=== PATIENT | male | born 1960 | race Caucasian/White ===

== ENCOUNTER → 2016-09-01 | Outpatient (CLI) | payer OTHER ==
--- NOTE | 2016-09-01 12:21 | XR ---
EXAMINATION TYPE: XR elbow complete LT DATE OF EXAM: 09/01/2016 12:05 PM COMPARISON: NONE HISTORY: 56-year-old male initial evaluation unspecified sprain of left elbow, medial elbow pain afte r shoveling injury TECHNIQUE: 3 views FINDINGS: There is mild marginal spurring at the ulnotrochlear joint suggesting some underlying degenerative ch johan. No acute fracture, subluxation, or dislocation. No significant elbow joint effusion though ther e is excessive obliquity on the lateral view limiting assessment. IMPRESSION: There is some degenerative spurring along the ulnotrochlear joint. No acute osseous abnormality seen.
== END ==
LOC: RADXRMAIN 11:43
PROVIDERS: ATTEND Emergency Medicine
DX: S53.402A Unspecified sprain of left elbow, initial encounter (principal); M77.8 Other enthesopathies, not elsewhere classified

== ENCOUNTER → 2019-03-15 | Outpatient (CLI) | payer BC ==
--- NOTE | 2019-03-15 19:37 | MR ---
"Abdomen MRI HISTORY: Adrenal mass Multiplanar multisequence and postcontrast images obtained through the abdomen following 8.5 cc Gadav ist IV. Correlation to prior CT scan dated 03/02/2019 The bilateral adrenal masses show marked signal drop on out of phase imaging compatible with adrenal adenomas. Signal drop also noted within the liver compatible with hepatic steatosis, the liver is enl arged and there is a small T2 intense, T1 hypointense focus within the right lobe corresponding to li mahad a cyst. The pancreas is unremarkable. Cortical cysts are T2 intense within the bilateral kidneys . There is no abnormal enhancement. Gallbladder is normal. There is no ascites. No retroperitoneal ad enopathy. The abdominal aorta is aneurysmal in the infrarenal location measuring approximately 4.7 cm, there is plaque along the wall and the common iliac arteries are not included in the exam. Lesion is unremark able. Lung bases show no fluid. No pleural or pericardial effusion. IMPRESSION: Bilateral adrenal adenomas. Hepatomegaly and hepatic steatosis. Infrarenal abdominal aort ic aneurysm, follow-up is recommended. A Yellow level critical message alert has been initiated for Natasha Farfan MD via the [employer] [facility] | Critical Results System on 03/15/2019 7:34 PM. This message alert has been sent to Natasha schneider MD via the preferences provided by the clinician for the receipt of Radiology Critical Findings. Message ID [id number]."
== END | disposition home or self-care (01) ==
LOC: RADMRIMAIN 06:59
PROVIDERS: ATTEND Internal Medicine
DX: D35.02 Benign neoplasm of left adrenal gland (principal); D35.01 Benign neoplasm of right adrenal gland; K76.0 Fatty (change of) liver, not elsewhere classified
CPT/HCPCS: 74183; A9585

== ENCOUNTER 2019-05-11 09:14 | Observation (INO) | payer BC, OTHER ==
--- NOTE | 2019-05-11 11:06 | ED ---
Neuro HPI - General Chief Complaint: Neuro Symptoms/Deficit Stated Complaint: Neuro symptoms Time Seen by Provider: 05/11/19 09:20 Source: patient, EMS Mode of arrival: EMS Limitations: no limitations - History of Present Illness Is the patient presenting with stroke symptoms?: Yes Last Known Well Date: 05/10/19 Last Known Well Time: 22:00 Initial Comments: The patient is a 58-year-old male who is a transfer from [facility] for stroke-like symptoms. The patient had onset of his symptoms were on 12:30 AM this morning. He states that he got up to go to the bathroom and he noted that he had weakness in his right upper and right lower extremity. He says that normally he has chronic weakness in his left lower extremity because of a meniscus injury. States that he was offered for him to have weakness on his right side. He felt as if he was not coordinated. He had difficulties with ambulation. He thought it was because he had a few drinks last night and the refore went to bed to sleep it off. When he woke up this morning he still had persistence of his symptoms. He denies any headaches or visual changes. No slurred speech or confusion from the patient. He then presented to [facility]. They did perform a CT of the patient's head which demonstrated an old infarct. They did state that the patient had some ataxia. They transferred him to our facility for further neurologic evaluation. He denies any blunt head trauma. Is not on any blood thinners. No history of CVA or TIA. Denies any difficulty swallowing. No chest pain or shortness of breath. There are no other alleviating, precipitating or modifying factors - Related Data Home Medications: Home Medications Medication Instructions Recorded Confirmed Diclofenac Sodium [Voltaren] 75 mg PO BID PRN 05/11/19 05/11/19 Previous Rx's Medication Instructions Recorded Aspirin 81 mg PO DAILY #30 chewable 05/12/19 Atorvastatin [Lipitor] 40 mg PO HS #30 tab 05/12/19 Allergies/Adverse Reactions: Allergies Allergy/AdvReac Type Severity Reaction Status Date / Time Sulfa (Sulfonamide AdvReac Unknown Verified 05/11/19 11:10 Antibiotics) Review of Systems ROS Statement: Those systems with pertinent positive or pertinent negative responses have been documented in the HPI. ROS Other: All systems not noted in ROS Statement are negative. General Exam Limitations: no limitations General appearance: alert, in no apparent distress Head exam: Present: atraumatic, normocephalic, normal inspection Eye exam: Present: normal appearance, PERRL, EOMI. Absent: scleral icterus, conjunctival injection, periorbital swelling ENT exam: Present: normal exam, mucous membranes moist Neck exam: Present: normal inspection. Absent: tenderness, meningismus, lymphadenopathy Respiratory exam: Present: normal lung sounds bilaterally. Absent: respiratory distress, wheezes, rales, rhonchi, stridor Cardiovascular Exam: Present: regular rate, normal rhythm, normal heart sounds. Absent: systolic murmur, diastolic murmur, rubs, gallop, clicks GI/Abdominal exam: Present: soft, normal bowel sounds. Absent: distended, tenderness, guarding, rebound, rigid Extremities exam: Present: normal inspection, full ROM, normal capillary refill. Absent: tenderness, pedal edema, joint swelling, calf tenderness Back exam: Present: normal inspection Neurological exam: Present: alert, oriented X3, CN II-XII intact, other (finger to nose is mildy weaker on the right ) Psychiatric exam: Present: normal affect, normal mood Skin exam: Present: warm, dry, intact, normal color. Absent: rash Stroke MDM - Lab Data Result diagrams: 05/12/19 05:31 05/12/19 05:31 - Medical Decision Making Upon arrival the patient was placed into room 4. I did review the patient's transfer packet.Review of the patient's lab work from [facility] demonstrates a sodium of 143, potassium 4.2, chloride 108, CO2 25, creatinine 0.9. Coags are within normal limits. Urinalysis is clear. White blood cell count 8.9, hemoglobin 15.9, platelets 251. CT of the head without contrast demonstrates no acute intracanal process. Moderate burden nonspecific white matter change appears similar to January 2019 with old punctate lacunar injury of the posterior limb of the left internal capsule. I called and discussed the case with Dr. Schofield who is requesting CT angios as well as an MRI of the patient's brain. The patient is sent over for CT angiography which demonstrates no flow-limiting stenosis of the bilateral carotid bifurcation. Normal [place]. Prominence of the thyroid. I discussed the results with the patient. I placed admission orders. He will be admitted to [facility] hospitalist. I did order the MRI. The patient is currently awaiting a bed on the floor Past Medical History History of Any Multi-Drug Resistant Organisms: None Reported Past Surgical History: Orthopedic Surgery, Tonsillectomy Additional Past Surgical History / Comment(s): right knee surgery Past Psychological History: No Psychological Hx Reported Smoking Status: Current every day smoker Past Alcohol Use History: Occasional - Past Family History Father Additional Family Medical History / Comment(s): Post polio Mother Family Medical History: Vascular Disorder Additional Family Medical History / Comment(s): Mother of a brain aneurysm. Course Vital Signs 05/11/19 05/11/19 05/11/19 09:19 11:13 14:53 Temperature 97.9 F 98 F Pulse Rate 64 66 66 Pulse Rate [ Pulse Oximetery ] Respiratory 16 16 18 Rate Blood Pressure 156/88 156/88 144/95 Blood Pressure [Left Arm] O2 Sat by Pulse 97 100 Oximetry 05/11/19 16:00 Temperature 97.7 F Pulse Rate Pulse Rate [ 65 Pulse Oximetery ] Respiratory 16 Rate Blood Pressure Blood Pressure 128/83 [Left Arm] O2 Sat by Pulse 95 Oximetry Disposition Clinical Impression: Cerebrovascular accident (CVA), Acute ataxia, Right arm weakness Disposition: ADMITTED IP TO THIS [facility] Condition: Stable Is patient prescribed a controlled substance at d/c from ED?: No Decision to Admit Reason: Admit from [facility] Decision Date: 05/11/19 Decision Time: 12:28
--- NOTE | 2019-05-11 12:05 | CT ---
EXAMINATION TYPE: CT angio head neck DATE OF EXAM: 05/11/2019 HISTORY: right side weakness COMPARISON: CT DLP: 467.8 mGycm. Automated Exposure Control for Dose Reduction was Utilized. TECHNIQUE: CTA scan of the neck is performed with IV Contrast, patient injected with 65 mL of Isovue 370, axial images are obtained, coronal and sagittal reformatted images are reviewed. Three-D recons tructed images are created on an independent workstation and reviewed. Source images are reviewed. FINDINGS: Carotid/Vascular Structures: There is a three-vessel arch. Right carotid artery is tortuous. The inte rnal carotid artery on the right is tortuous. There is milder tortuosity on the left. Cervical of Mahmood: Vertebral basilar system appears normal. Posterior cerebral vasculature is unrema rkable. Internal carotid arteries bifurcate normally into A1 and M1 segments. A2 segments are normal. The anterior communicating artery is patent. Left Posterior communicating artery is patent. Right po sterior communicating artery is patent. Other: There is prominence of the thyroid. This could be followed with ultrasound. IMPRESSION: 1. No flow-limiting stenosis bilateral carotid bifurcations. 2. Normal [place] 3. Prominence of the thyroid. Follow-up with ultrasound.
[2019-05-11] MEDS ORDERED: NALOXONE 0.4 MG/ML 1 ML VIAL IV PRN (12:28)
[2019-05-11] MEDS ORDERED: ATORVASTATIN 40 MG TAB PO STA (12:37)
--- NOTE | 2019-05-11 14:21 | MR ---
EXAMINATION TYPE: MR brain wo/w con DATE OF EXAM: 05/11/2019 COMPARISON: CT brain 05/11/2019 HISTORY: CVA CONTRAST: Performed utilizing 8.5 mL intravenous Gadavist gadolinium contrast. TECHNIQUE: Multiplanar, multiecho imaging on a 3.0 Rosario magnet is performed through the brain. Stud y is performed within 24 hours of arrival to the hospital. The craniovertebral junction is normal. The pituitary is normal. Diffusion-weighted imaging is performed. There is a punctate hyper intensity on the diffusion weight ed imaging in the posterior right lateral aspect of the corpus callosum. Series 305 image 152. Additi onally, small focus of increased signal on diffusion-weighted imaging is in the subcortical white mat ter of the right parietal lobe at the level of the rizzo radiata. Acute ischemic changes at these le vels are suspected. There is extensive periventricular white matter hyperintensities. Some additional hyperintensities wi thin the right brain stem. Findings are nonspecific but could be related to microvascular ischemic ch johan. Other etiologies including multiple sclerosis and vasculitis could be considered. Ventricles and sulci are appropriate for the patient age. No abnormal enhancement is evident. IMPRESSIONS: 1. Hyperintensity within the posterior right corpus callosum and within the right subcortical parieta l lobe on diffusion-weighted imaging suggestive for acute ischemic areas. 2. Extensive periventricular white matter hyperintensities and right brain stem hyperintensity on inv ersion recovery weighted sequences may be related to chronic white matter ischemic change.
[2019-05-11] MEDS ORDERED: ACETAMINOPHEN TAB 500 MG TAB PO PRN (16:34)
[2019-05-11] MEDS ORDERED: ALPRAZolam 0.25 MG TAB PO PRN (16:34)
--- NOTE | 2019-05-11 19:08 | HP ---
HISTORY AND PHYSICAL DATE OF SERVICE: 05/11/2019 CHIEF COMPLAINT: Weakness of the right side of the body. HISTORY OF PRESENT ILLNESS: This 58-year-old gentleman with a past medical history of DJD, history of pneumonia, history of vertigo, history of chronic left knee pain, being followed by Dr. Farfan in the outpatient setting, apparently had an episode of speech problems about 2 months ago which lasted for a few hours. Patient did not seek any medical attention, but subsequently since last night the patient has noted weakness of the right side of the body; right hand and right foot were not under his control, according to him, and the patient went to [facility]. Evaluation showed possible old lacunar infarct in the left posterior limb of internal capsule. The patient was referred to [facility] because of lack of a neurologist at this time. Neurology consultation was obtained. Currently the patient still has some weakness, more incoordination type of difficulties. The patient also had a CT angio that showed no evidence of any obstruction, but the patient also had an MRI scan that showed hyperintensity within the posterior right corpus callosum and within the right subcortical parietal lobe on diffusion weighted imaging suggestive of acute ischemic areas. Extensive periventricular changes were also noted. Patient was admitted for further evaluation and treatment. There is no history of any fever, rigor or chills. No history of headache, loss of consciousness, seizures. PAST MEDICAL HISTORY: 1. History of DJD. 2. History of pneumonia. 3. History of vertigo. 4. History of speech difficulties, as mentioned earlier. CURRENT MEDICATIONS: Reviewed. They include Voltaren 75 mg b.i.d. p.r.n. ALLERGIES: SULFA. FAMILY HISTORY: History of vascular disorder, history of post-polio. SOCIAL HISTORY: History of alcohol, occasional. History of smoking on a daily basis. REVIEW OF SYSTEMS: ENT: No diminished hearing. No diminished vision. CARDIOVASCULAR SYSTEM: No angina, palpitations. RESPIRATORY SYSTEM: As mentioned earlier. GI: No nausea, vomiting. : No dysuria or retention. NERVOUS SYSTEM: As mentioned earlier. ALLERGY/IMMUNOLOGY: No asthma, hayfever. MUSCULOSKELETAL: As mentioned earlier. HEMATOLOGY/ONCOLOGY: No history of anemia. ENDOCRINE: No history of diabetes, hypothyroidism. CONSTITUTIONAL: As mentioned earlier. DERMATOLOGY: Negative. RHEUMATOLOGY: Negative. PSYCHIATRY: As mentioned earlier. PHYSICAL EXAMINATION: Patient alert and oriented x3. Pulse 66, blood pressure 144/95, respirations 18, temperature 98 degrees, pulse ox 100% on room air. HEENT: Conjunctivae normal. Oral mucosa moist. NECK: No jugular venous distention. No carotid bruit. No lymph node enlargement. CARDIOVASCULAR SYSTEM: S1, S2 muffled. No S3. No S4. RESPIRATORY SYSTEM: Breath sounds diminished at the bases. No rhonchi. No crackles. ABDOMEN: Soft, non-tender. No mass palpable. LEGS: No edema. No swelling. NERVOUS SYSTEM: Higher functions as mentioned earlier. Cranial nerves: Minimal flattening of the face on the left side. Otherwise, minimal weakness of the right upper and lower limbs, grade 3-4. Some incoordination also present on the right side. SKIN: No ulcer, rash, bleeding. JOINTS: No active deforming arthropathy. LYMPHATICS: No lymph node palpable in neck, axillae or groin. LAB INVESTIGATIONS: Pending at this time. ASSESSMENT: 1. Acute right-sided weakness caused by left-sided acute stroke involving the posterior right corpus callosum as well as right subcortical parietal lobe. 2. Extensive white matter periventricular changes on the MRI. 3. Hypertension. 4. History of degenerative joint disease. 5. History of pneumonia. 6. History of vertigo. 7. History of chronic left knee pain. 8. History of bronchitis. 9. History of continued ongoing nicotine dependence. 10.History of occasional alcohol usage. 11.FULL CODE. RECOMMENDATIONS AND DISCUSSION: In this 58-year-old gentleman who presented with multiple complex medical issues, we will monitor the patient closely, continue the current medications. Will admit and monitor closely. Neuro checks. Neurovascular evaluation and a 2D echo with Doppler. I would also recommend a OUMAR if the telemetry and other cardiac workup, if the transthoracic echo is normal. Otherwise, antiplatelet agents, DVT prophylaxis. Guarded prognosis because of multiple complex medical problems. Smoking cessation advised. A copy of this dictation is being forwarded to Dr. Farfan, who is the primary physician. Discussed with the patient, who understands and agrees. Further recommendations to follow. See orders for further details. Will continue with permissive hypertension at this time. Continue to monitor. MMODL / IJN: [id number] /
[2019-05-11 19:50] LABS: Appearance,Urine Clear (Clear); Bilirubin,Urine Negative (Negative); Blood,Urine Negative (Negative); Color,Urine Yellow; Glucose,Urine (UA) Negative (Negative); Ketones,Urine Negative (Negative); Leukocyte Esterase,Urine Negative (Negative); Nitrite,Urine Negative (Negative); Protein,Urine Trace (Negative); Urobilinogen,Urine <2.0 mg/dL (<2.0)
[2019-05-11 19:59] LABS: Amphetamine Screen,Urine Not Detected (NotDetected); Barbiturate Screen,Urine Not Detected (NotDetected); Benzodiazepines Screen,Urine Not Detected (NotDetected); Cocaine Screen,Urine Not Detected (NotDetected); Methadone Screen, Urine Not Detected (NotDetected); Opiate Screen,Urine Not Detected (NotDetected); Oxycodone Screen, Urine Not Detected (NotDetected); Phencyclidine Screen,Urine Not Detected (NotDetected); Tricyclic Antidepressant,Urine Not Detected (NotDetected); Urn Cannabinoid Scrn Not Detected (NotDetected)
[2019-05-11] MEDS: HEPARIN SODIUM,PORCINE 5,000 UNIT/ML 1 ML VIAL SQ SCH (20:28)
[2019-05-12 05:50] LABS: Basophils % (A) 1 %; Eosinophils # (A) 0.3 k/uL (0-0.7); Eosinophils % (A) 4 %; HCT 41.7 % (39.0-53.0); HGB 14.1 gm/dL (13.0-17.5); Lymphocytes # (A) 2.3 k/uL (1.0-4.8); Lymphocytes % (A) 28 %; MCH 32.9 pg (25.0-35.0); MCHC 33.9 g/dL (31.0-37.0); Mean Platelet Volume 7.5; Monocytes # (A) 0.4 k/uL (0-1.0); Monocytes % (A) 5 %; Neutrophils % (A) 61 %; Platelet Count 274 k/uL (150-450); RDW 12.4 % (11.5-15.5); WBC 8.3 k/uL (3.8-10.6)
[2019-05-12 05:59] LABS: African American GFR (CKD) >90 (>60 ml/min/1.73 sqM); Anion Gap 5 mmol/L; Blood Urea Nitrogen 25 mg/dL (9-20); Calcium 9.1 mg/dL (8.4-10.2); Carbon Dioxide 24 mmol/L (22-30); Chloride 112 mmol/L (98-107); Cholesterol 194 mg/dL (<200); Glucose 151 mg/dL (74-99); HDL Cholesterol 31 mg/dL (40-60); LDL Cholesterol,Calculated 138 mg/dL (0-99); Non-African American GFR(CKD) >90 (>60 ml/min/1.73 sqM); Potassium 4.2 mmol/L (3.5-5.1); Sodium 141 mmol/L (137-145); Triglycerides 123 mg/dL (<150)
[2019-05-12] MEDS ORDERED: PANTOPRAZOLE 40 MG TABLET PO SCH (07:30)
[2019-05-12 08:48] VITALS: RESP 16; TEMP 97.7
[2019-05-12] MEDS: HEPARIN SODIUM,PORCINE 5,000 UNIT/ML 1 ML VIAL SQ SCH (08:52)
[2019-05-12] MEDS ORDERED: ASPIRIN 325 MG TAB PO SCH (09:00)
[2019-05-12] MEDS ORDERED: NICOTINE 14MG/24HR PATCH TRANSDERM SCH (09:00)
[2019-05-12] MEDS ORDERED: ATORVASTATIN 40 MG TAB PO SCH (09:00)
[2019-05-12 11:07] VITALS: BP 132/83; PULSE 58
--- NOTE | 2019-05-12 12:00 | ECHOF ---
Referral Reason:Stroke MEASUREMENTS -------- HEIGHT: 185.4 cm WEIGHT: 96.2 kg BP: 115/56 RVIDd: 3.8 cm (< 3.3) IVSd: 1.2 cm (0.6 - 1.1) LVIDd: 5.6 cm (3.9 - 5.3) LVPWd: 1.2 cm (0.6 - 1.1) IVSs: 1.3 cm LVIDs: 4.0 cm LVPWs: 2.0 cm LAESV Index (A-L): 29.19 ml/m Ao Diam: 3.4 cm (2.0 - 3.7) AV Cusp: 2.0 cm (1.5 - 2.6) LA Diam: 3.7 cm (2.7 - 3.8) MV EXCURSION: 15.279 mm (> 18.000) MV EF SLOPE: 61 mm/s (70 - 150) EPSS: 1.1 cm MV E Femi: 0.92 m/s MV DecT: 216 ms MV A Femi: 0.77 m/s MV E/A Ratio: 1.20 RAP: 5.00 mmHg RVSP: 37.28 mmHg FINDINGS -------- Sinus rhythm. This was a technically adequate study. The left ventricular size is normal. There is mild concentric left ventricular hypertrophy. Overa ll left ventricular systolic function is low-normal with, an EF between 50 - 55 %. The diastolic fi lling pattern is normal for the age of the patient 11.02. The right ventricle is mildly enlarged. LA is midly dilated 29-33ml/m2. The right atrium is mildly enlarged. Interatrial and interventricular septum intact. The aortic valve is trileaflet and appears structurally normal. There is no evidence of aortic regu rgitation. There is no evidence of aortic stenosis. Mild mitral regurgitation is present. Mild tricuspid regurgitation present. There is mild pulmonary hypertension. The right ventricular systolic pressure, as measured by Doppler, is 37.28mmHg. There is no pulmonic regurgitation present. The aortic root size is normal. IVC Not well visulized. There is no pericardial effusion. CONCLUSIONS -------- 1. Sinus rhythm. 2. This was a technically adequate study. 3. The left ventricular size is normal. 4. There is mild concentric left ventricular hypertrophy. 5. Overall left ventricular systolic function is low-normal with, an EF between 50 - 55 %. 6. The diastolic filling pattern is normal for the age of the patient 11.02 7. The right ventricle is mildly enlarged. 8. LA is midly dilated 29-33ml/m2. 9. The right atrium is mildly enlarged. 10. Interatrial and interventricular septum intact. 11. The aortic valve is trileaflet and appears structurally normal. 12. There is no evidence of aortic regurgitation. 13. There is no evidence of aortic stenosis. 14. Mild mitral regurgitation is present. 15. Mild tricuspid regurgitation present. 16. There is mild pulmonary hypertension. 17. The right ventricular systolic pressure, as measured by Doppler, is 37.28mmHg. 18. There is no pulmonic regurgitation present. 19. The aortic root size is normal. 20. IVC Not well visulized. 21. There is no pericardial effusion. BREAD BAKER: Jessica Huggins RDCS
--- NOTE | 2019-05-12 13:39 | P.DS ---
Providers Date of admission: 05/11/19 12:29 Attending physician: Qian Gray Consults: 05/11/19 12:29 Consult Physician Urgent Consulting Provider: Kaylyn Schofield Consult Reason/Comments: acute right sided weakness, suspected TIA/CVA Do you want consulting provider notified?: Yes Primary care physician: Naheed Aguilar [facility] Course: 58-year-old male was admitted for TIA involving the right side of the body. His symptoms resolved after a few hours. CAT scan of the head that was done in at [facility] did show a lacunar infarct in the left posterior and urine which explains his symptoms of weakness in the right side of the body but this appears to be an old stroke. Patient appears to have had TIA here. MRI although did show some suspicious infarcts in the right corpus callosum and right subcortical area although these findings doesn't explain his present symptoms. I did discuss with the neurologist and she is not impressed with with the above reading and but concerned about couple areas that are suspicious for multiple sclerosis although probably extremely low because of his age and sex. Patient will be referred to neurologist excessive counseling regarding nicotine use provided patient does have elevated LDL of 138 did counseling was provided and patient will be discharged on statin and a low-dose aspirin echocardiogram was reviewed did not show any significant abnormality. PHYSICAL EXAMINATION: GENERAL: The patient is alert and oriented x3, not in any acute distress. Well developed, well nourished. HEENT: Pupils are round and equally reacting to light. EOMI. No scleral icterus. No conjunctival pallor. Normocephalic, atraumatic. No pharyngeal erythema. No thyromegaly. CARDIOVASCULAR: S1 and S2 present. No murmurs, rubs, or gallops. PULMONARY: Chest is clear to auscultation, no wheezing or crackles. ABDOMEN: Soft, nontender, nondistended, normoactive bowel sounds. No palpable organomegaly. MUSCULOSKELETAL: No joint swelling or deformity. EXTREMITIES: No cyanosis, clubbing, or pedal edema. NEUROLOGICAL: Gross neurological examination did not reveal any focal deficits. SKIN: No rashes. Possible TIA involving left internal capsule ischemic in origin. The rest of the other medical problems and hospitalization course, please refer to dictation from Dr. Gray from yesterday Patient Condition at Discharge: Serious Plan - Discharge Summary Discharge Rx Participant: No New Discharge Prescriptions: New Aspirin 81 mg PO DAILY #30 chewable Atorvastatin [Lipitor] 40 mg PO HS #30 tab Continue Diclofenac Sodium [Voltaren] 75 mg PO BID PRN PRN Reason: Pain Discharge Medication List Diclofenac Sodium [Voltaren] 75 mg PO BID PRN 05/11/19 [History] Aspirin 81 mg PO DAILY #30 chewable 05/12/19 [Rx] Atorvastatin [Lipitor] 40 mg PO HS #30 tab 05/12/19 [Rx] Follow up Appointment(s)/Referral(s): Natasha Farfan MD [Primary Care Provider] - 05/24/19 9:00 am Randall Corrigan MD [STAFF PHYSICIAN] - 1 Week (Neurologist. Office will call with a follow up appointment. ) Patient Instructions/Handouts: Heart Healthy Diet (DC), Ischemic Stroke (DC) Discharge Disposition: HOME SELF-CARE
--- NOTE | 2019-05-12 13:57 | P.CNNES ---
History of Present Illness Consult date: 05/12/19 Reason for Consult: Concern for stroke Chief complaint: RUE and RLE weakness History of Present Illness: HISTORY OF PRESENT ILLNESS: Thank you for allowing me to evaluate Mr. Pk Pink. Mr. Pink is a 58 year-old L-handed man with PMhx of vertigo, speech difficulties since about 2 months ago, who presents with episode of R-sided weakness. Patient states that 12:30 am before presentation, patient noted that he was having some RUE and RLE weakness along with R hand coordination issues. Patient has a history of R knee surgery and L meniscus injury, but patient has had issues with his LLE weakness. At this time, patient with no focal deficits. All symptoms resolved since about 5pm yesterday per patient. Denies any recent sickness, fever, headache, nausea, vomiting, chest pain, SOB, abdominal pain, diarrhea or constipation. In regards to his episode of slurred speech, patient states that he was in a car with his [id number] who was driving, and at one point, patient himself felt that he had slurred speech so asked his [id number], and he agreed. Patient denies ever having vision issues, pain with eye movement, urinary/bowel incontinence/continence issues, weakness other than what happened yesterday. Endorses persistent L foot numbness that's been going on for years. PAST MEDICAL HISTORY: Vertigo, speech difficulties since about 2 months ago PAST SURGICAL HISTORY: Tonsillectomy, R knee surgery HOME MEDICATIONS: Diclofenac ALLERGIES: Sulfa SOCIAL HISTORY: Current everyday smoker FAMILY HISTORY: Father with polio. Mother of a brain aneurysm. REVIEW OF SYSTEMS: The 14 systems are reviewed and no additional points are identified compared to the review of systems documented history and physical PHYSICAL EXAMINATION: VITAL SIGNS: T 97.7 HR 62 RR 16 BP 119/68 O2 sat 94% on RA GEN.: NAD, pleasant and cooperative HEENT: NCAT, sclera without icterus NECK: Supple SKIN AND EXTREMITIES: Warm to touch, no edema NEURO: MENTAL STATUS: Patient alert and oriented to self, place, time. Able to name the current president. Speech fluent, able to name and repeat, following all commands readily. No right and left disorientation, neglect. CRANIAL NERVES II THROUGH XII: II: Pupils are equal and reactive to light symmetrically. No afferent pupillary defect. Visual panda are intact. III, IV, : No ptosis. Extraocular movements full. No nystagmus. V: Facial sensation intact from V1-3. VII. No clear facial asymmetry. VIII: Hearing intact to finger rub bilaterally. IX, X: Symmetric palate elevation. XI: Shoulder shrug intact. XII: Tongue midline without fasciculation or atrophy. MOTOR: Normal bulk/tone. No pronator drift or tremor. Strength is 5/5 throughout all 4 extremities. SENSORY: Intact to light touch in all 4 extremities. Romberg is negative. REFLEXES: 2+ throughout. Toes are downgoing. COORDINATION: Finger to nose intact. No dysmetria. GAIT: Narrow-based and stable. Able to toe/heel/tandem walk. Some difficulty due to pain in L knee DIAGNOSTIC TESTING: LABORATORY: WBC 8.3 Hgb 14.1 Platelet 274 Na 141 K 4.2 Cl 112 CO2 24 BUN 25 Cr 0.72 glucose 151 TG 123 Total cholesterol 194 LDL 138 HDL 31 urinalysis and utox negative IMAGING: CTA Head and Neck w/ contrast 05/11/19: No flow-limiting stenosis of bilateral carotid bifurcations. Normal [place] MRI brain w/ and w/o contrast 05/11/19: small focus of increased signal in R parietal and R lateral aspect of corpus callosum on diffusion that does not correlate with ADC. Extensive periventricular white matter hyperintensities and R brainstem hyperintensity, may be related to chronic white matter ischemic change. Outside CT Head: apparently showed old lacunar infarct in L internal capsule Cardiac monitoring: no obvious atrial arrhythmia since admission TTE 05/12/19: SR. LV, size normal. RV/RA/LA mildly enlarged. EF 50-55%. Interatrial and interventricular septum intact. ASSESSMENT: 58 year-old L-handed man with PMhx of vertigo, speech difficulties since about 2 months ago, who presents with episode of R-sided weakness. At this time, no focal deficit. MRI brain with small focus of increased signal in R parietal and R lateral aspect of corpus callosum on diffusion that does not correlate with ADC, difficult to call it acute stroke. However, on T2 Flair, there are many ovoid hyperintense lesions along with some small perivenular lesions, that are found in MS patients, but patient does not endorse any additional episodes of neurological deficit other than the slurred speech 2 months ago and R-sided weakness and incoordiantion. MRI brain was done with contrast, and nothing enhancing. RECOMMENDATIONS: 1. c/w ASA 81mg qday and atorvastatin 40mg qhs 2. Discussed with patient about stroke prevention guidelines. Medication compliance, hypertension/diabetes control, lifestyle changes including no smoking, drinking in moderation, losing weight, exercising, eating healthier 3. Patient needs to follow up with neurologist as outpatient within 2-3 weeks of discharge. Advised patient to take all his medical records from this hospitalization to review imaging and documentation for possible consideration of MS as a diagnosis. 4. Discussed ED precautions: return to ED if having severe headache, nausea, vomiting, vision deficits, speech difficulty, facial asymmetry, weakness, numbness or tingling. 5. Neurology will sign off at this time. Please feel free to contact Neurology again if with additional questions or concerns. Past Medical History Past Medical History: Osteoarthritis (OA), Pneumonia Additional Past Medical History / Comment(s): Vertigo, chronic L knee pain (torn meniscus), bronchitis. History of Any Multi-Drug Resistant Organisms: None Reported Past Surgical History: Orthopedic Surgery, Tonsillectomy Additional Past Surgical History / Comment(s): right knee surgery Past Anesthesia/Blood Transfusion Reactions: No Reported Reaction Past Psychological History: No Psychological Hx Reported Smoking Status: Current every day smoker Past Alcohol Use History: Occasional - Past Family History Father Additional Family Medical History / Comment(s): Post polio Mother Family Medical History: Vascular Disorder Additional Family Medical History / Comment(s): Mother of a brain aneurysm. Medications and Allergies Home Medications Medication Instructions Recorded Confirmed Type Diclofenac Sodium [Voltaren] 75 mg PO BID PRN 05/11/19 05/11/19 History Aspirin 81 mg PO DAILY #30 chewable 05/12/19 Rx Atorvastatin [Lipitor] 40 mg PO HS #30 tab 05/12/19 Rx Allergies Allergy/AdvReac Type Severity Reaction Status Date / Time Sulfa (Sulfonamide AdvReac Unknown Verified 05/11/19 11:10 Antibiotics) Physical Examination - Vital Signs Vital Signs: Vital Signs Temp Pulse Pulse Resp BP BP Pulse Ox 05/12/19 08:00 62 16 05/12/19 07:30 97.7 F 62 16 119/68 94 L 05/12/19 04:00 97.9 F 61 18 115/56 96 05/12/19 00:00 98.4 F 61 18 120/59 96 05/11/19 20:00 98.3 F 76 16 128/73 94 L 05/11/19 16:00 97.7 F 65 16 128/83 95 05/11/19 14:53 98 F 66 18 144/95 100 05/11/19 11:13 66 16 156/88 Intake and Output 05/11/19 05/12/19 05/12/19 22:59 06:59 14:59 Intake Total 800 540 240 Output Total 150 Balance 650 540 240 Intake: Oral 800 540 240 Output: Urine 150 Other: Voiding Method Toilet Toilet Toilet # Voids 1 2 Weight 96.2 kg Results - Laboratory Findings CBC and BMP: 05/12/19 05:31 05/12/19 05:31 Abnormal Lab Findings: Abnormal Labs 05/11/19 05/12/19 19:30 05:31 Chloride 112 H BUN 25 H Glucose 151 H LDL Cholesterol, Calc 138 H HDL Cholesterol 31 L Ur Specific [place] 1.050 H Urine Protein Trace H
[2019-05-13] MEDS ORDERED: ASPIRIN 81 MG PO SCH (09:00)
== END 2019-05-12 13:05 | disposition home or self-care (01) ==
LOC: EC 09:14 → 3SCARD 12:29
PROVIDERS: ADMIT Hospitalist; ATTEND Hospitalist
DX: G45.9 Transient cerebral ischemic attack, unspecified (principal); I10 Essential (primary) hypertension; Z79.82 Long term (current) use of aspirin; Z79.899 Other long term (current) drug therapy; Z86.73 Personal history of transient ischemic attack (TIA), and cerebral infarction without residual deficits; Z87.01 Personal history of pneumonia (recurrent); Z88.2 Allergy status to sulfonamides; F17.200 Nicotine dependence, unspecified, uncomplicated; Z71.6 Tobacco abuse counseling
CPT/HCPCS: 96372 ×2; 99285; 93306; 97161; 97166; 80061; 80048; 85025; 81003; 80306; 70496; 70498; 70553; G0378 ×2; J1644 ×2; A9585; Q9967

== ENCOUNTER → 2019-08-08 | Outpatient (CLI) | payer OTHER | END | disposition home or self-care (01) | LOC: LABWHC1 06:49 | PROVIDERS: ATTEND Internal Medicine Endocrinology, Diabetes & Metabolism | DX: D35.00 Benign neoplasm of unspecified adrenal gland (principal) | CPT/HCPCS: 36415; 82024; 82088; 82533; 82542; 83835; 84244 ==

== ENCOUNTER → 2019-08-15 | Outpatient (CLI) | payer OTHER ==
[2019-08-15 07:32] LABS: HCT 42.9 % (39.0-53.0); HGB 14.5 gm/dL (13.0-17.5); MCH 32.2 pg (25.0-35.0); MCHC 33.7 g/dL (31.0-37.0); MCV 95.4 fL (80.0-100.0); Mean Platelet Volume 7.9; Platelet Count 270 k/uL (150-450); RBC 4.49 m/uL (4.30-5.90); RDW 12.5 % (11.5-15.5); WBC 8.1 k/uL (3.8-10.6)
[2019-08-15 11:25] LABS: T4, Free (Free Thyroxine) 1.3 ng/dL (0.80-1.80)
[2019-08-15 11:35] LABS: Prolactin 11.6 ng/mL (2.1-17.7)
[2019-08-15 11:36] LABS: Follicle Stimulating Hormone 8.9 mIU/mL; Luteinizing Hormone 4.4 mIU/mL
== END | disposition home or self-care (01) ==
LOC: LABWHC1 06:48
PROVIDERS: ATTEND Internal Medicine Endocrinology, Diabetes & Metabolism
DX: D35.00 Benign neoplasm of unspecified adrenal gland (principal)
CPT/HCPCS: 36415; 83001; 83002; 84146; 84153; 84270; 84402; 84403; 84439; 84443; 85027

== ENCOUNTER → 2020-12-10 | Outpatient (CLI) | payer OTHER ==
--- NOTE | 2020-12-12 12:36 | P.ARTDOP ---
Arterial Doppler LOWER EXTREMITY ARTERIAL DOPPLER: DATE OF SERVICE: 12/10/2020 Reason for study: Left leg pain. Doppler waveforms: Multiphasic bilaterally throughout. Pulse volume recording: []. Pressure gradients: None. Ankle-brachial indices: Greater than 1 bilaterally. Toe brachial indices: 0.95 on the right, 0.84 on the left Impression: Normal study.
== END | disposition home or self-care (01) ==
LOC: RADUSWWP 14:15
PROVIDERS: ATTEND Internal Medicine
DX: M79.662 Pain in left lower leg (principal)
CPT/HCPCS: 93922

== ENCOUNTER → 2021-01-10 | Outpatient (CLI) | payer OTHER ==
[2021-01-10 13:21] LABS: HGB 15.7 g/dL (13.0-17.0); MCH 32.3 pg (27.0-32.0); MCHC 34.1 g/dL (32.0-37.0); MCV 94.7 fL (80.0-97.0); Mean Platelet Volume 10.3 fL (9.5-12.2); Platelet Count 134 X 10*3/uL (140-440); RBC 4.86 X 10*6/uL (4.40-5.60); RDW 12.2 % (11.5-14.5); WBC 9.77 X 10*3/uL (4.50-10.00)
[2021-01-10 14:18] LABS: Albumin 4.6 g/dL (3.80-4.90); Albumin/Globulin Ratio 1.77 (1.60-3.17); Anion Gap 9.6 mmol/L (4.00-12.00); BUN/Creat Ratio 26.25 Ratio (12.00-20.00); Calcium 9.3 mg/dL (8.7-10.3); Carbon Dioxide 20.4 mmol/L (21.6-31.8); Globulin 2.6 g/dL (1.6-3.3); Non-African American GFR(CKD) 95.7 (60.0-200.0); Total Bilirubin 0.4 mg/dL (0.3-1.2); Total Protein 7.2 g/dL (6.2-8.2)
[2021-01-10 16:49] LABS: Hemoglobin A1C 6.3 % (4.0-6.0)
== END | disposition home or self-care (01) ==
LOC: LABWHC1 07:15
PROVIDERS: ATTEND Internal Medicine Endocrinology, Diabetes & Metabolism
DX: D35.00 Benign neoplasm of unspecified adrenal gland (principal)
CPT/HCPCS: 36415; 80053; 82088; 82306; 82533; 83036; 83835; 84244; 85027

== ENCOUNTER → 2021-05-09 | Outpatient (CLI) | payer OTHER ==
[2021-05-09 20:29] LABS: HCT 48.2 % (39.6-50.0); HGB 15.3 g/dL (13.0-17.0); MCH 31.1 pg (27.0-32.0); MCHC 31.7 g/dL (32.0-37.0); Mean Platelet Volume 10.5 fL (9.5-12.2); RBC 4.92 X 10*6/uL (4.40-5.60); RDW 12.5 % (11.5-14.5); WBC 10.46 X 10*3/uL (4.50-10.00)
[2021-05-09 22:33] LABS: African American GFR (CKD) 114.3 (60.0-200.0); Carbon Dioxide 22.7 mmol/L (20.0-27.5); Non-African American GFR(CKD) 98.6 (60.0-200.0); Potassium 4.1 mmol/L (3.5-5.5)
== END | disposition home or self-care (01) ==
LOC: LABWHC1 12:28
PROVIDERS: ATTEND Internal Medicine
DX: Z01.812 Encounter for preprocedural laboratory examination (principal); R06.02 Shortness of breath
CPT/HCPCS: 36415; 80051; 82565; 84520; 85027

== ENCOUNTER → 2021-05-28 | Day surgery (SDC) | payer OTHER ==
[2021-05-10 08:39] VITALS: BMI 28.6
[~2021-05-28] MED LIST: ALPRAZolam 0.25 MG TAB PO PRN; ALPRAZolam 0.5 MG TAB PO PRN; ASPIRIN 325 MG TAB PO ONE; ASPIRIN 81 MG ONE; HEPARIN SODIUM 1,000 UN/ML (10ML VL) IV ONE; HEPARIN SODIUM 1,000 UN/ML (10ML VL) ONE; HEPARIN SODIUM,PORCINE 10,000 UNIT in SODIUM CHLORIDE 0.9% 1,000 ML IRRIGATION PRN; HEPARIN SODIUM,PORCINE 2,500 UNIT in SODIUM CHLORIDE 0.9% 250 ML IRRIGATION PRN; IOPAMIDOL-370 125ML BTL INJ ONE; LIDOCAINE 1% INJ 10MG/ML (20 ML MDV) ONE; LIDOCAINE 1% INJ 10MG/ML (20 ML MDV) SQ ONE; MIDAZOLAM 2 MG/2 ML VIAL IV ONE; NITROGLYCERIN SL TABS 0.4 MG TAB SUBLINGUAL PRN; SODIUM CHLORIDE 0.9% 1,000 ML in EMPTY BAG 1 BAG IV SCH; VERAPAMIL 2.5 MG/ML 2 ML AMP ONE; VERAPAMIL SYRINGE (5 MG/10 ML) INTRAARTER ONE; fentaNYL (PF) 50 MCG/ML 2 ML AMP IV ONE; fentaNYL (PF) 50 MCG/ML 2 ML AMP ONE
[2021-05-28 09:49] VITALS: TEMP 97.9
[2021-05-28 10:26] LABS: Basophils # (A) 0.1 k/uL (0-0.2); Basophils % (A) 1 %; Eosinophils # (A) 0.1 k/uL (0-0.7); Eosinophils % (A) 1 %; HCT 46.1 % (39.0-53.0); HGB 15.5 gm/dL (13.0-17.5); Lymphocytes # (A) 2.4 k/uL (1.0-4.8); Lymphocytes % (A) 24 %; MCHC 33.7 g/dL (31.0-37.0); MCV 97.8 fL (80.0-100.0); Mean Platelet Volume 7.9; Monocytes # (A) 0.4 k/uL (0-1.0); Monocytes % (A) 4 %; Neutrophils # (A) 6.8 k/uL (1.3-7.7); Neutrophils % (A) 69 %; Platelet Count 248 k/uL (150-450); RBC 4.71 m/uL (4.30-5.90); RDW 12.8 % (11.5-15.5)
--- NOTE | 2021-05-28 13:09 | P.CARDCATH ---
Description of Procedure: PROCEDURES PERFORMED: Left heart catheterization, bilateral coronary angiography INDICATION: Abnormal stress test HISTORY: Patient is a pleasant 60-year-old male with history of hypertension, hyperlipidemia, stroke, AAA, tobacco abuse and osteoarthritis. Patient was evaluated for possible AAA repair as well as knee surgery and has not been very active secondary to his knee pain. Previous to this he is not having any significant chest pain or pressure or shortness breath however nuclear stress test was performed which did show inferior ischemia. Patient also had an echocardiogram which showed preserved EF 55-60%. Therefore heart catheterization was recommended for definitive diagnosis. CONSENT:I have discussed the risks, benefits and alternative therapies for the above-mentioned procedure and for both sedation/analgesia as well as necessary blood product administration, if indicated, as they pertain to this patient. The patient has indicated understanding and acceptance of the risks and procedures discussed. PROCEDURE: After the risks, benefits and alternatives of the above mentioned procedure explained in detail with the patient, informed consent was obtained. Patient was taken to the catheterization lab and prepped and draped in usual fashion. 1% lidocaine was used to anesthetize the right radial artery. A 6- Welsh sheath was placed in the right radial artery using modified Seldinger technique. Left coronary angiography was performed with a 5-Welsh JL 3.5 catheter and right coronary angiography was performed with a 5-Welsh JR5 catheter in various views. A 5-Welsh FR5 catheter was inserted into the left ventricle and pressure measurements were obtained. The right radial sheath was removed and a TR band was placed with hemostasis achieved. The patient tolerated the procedure well. Patient was transported back to the post catheterization holding area in stable condition. Conscious Sedation: Patient was monitored under the direct supervision of vision of myself for conscious sedation using Versed and fentanyl for a total duration of 15 minutes HEMODYNAMICS: Ao: 126/74 LV: 123/7, LVEDP 14 SELECTIVE CORONARY ARTERIOGRAPHY: LEFT MAIN: The left main is a large caliber vessel which bifurcates into the LAD and circumflex. There is no significant stenosis. LEFT ANTERIOR DESCENDING CORONARY ARTERY: LAD is a large caliber vessel which wraps around to the apex. There is no significant stenosis. LEFT CIRCUMFLEX CORONARY ARTERY: Left circumflex is a moderate to large caliber vessel which gives off the PDA and is the dominant vessel. There is a mid circumflex 50-60% stenosis just after a small caliber OM1. OM2 has a mid 80% stenosis however is small caliber. At the level of OM2 a small AV branch comes off. After OM2 there is a flush 100% circumflex occlusion however left to left collaterals to the PDA and an OM3 and OM4 show a long PROGRAM CHECKER coming back to the mid circumflex occlusion. RIGHT CORONARY ARTERY: The right coronary artery is a small caliber vessel which gives off an acute marginal branch and is nondominant. There is a diffuse 70- 80% mid RCA stenosis however only appears to fill a small acute marginal branch. There are small right to left collaterals. FINAL IMPRESSION: 1. CAD as described above with 70-80% small caliber nondominant RCA stenosis, 50-60% mid circumflex stenosis, 80% OM2 stenosis and long PROGRAM CHECKER lesion of mid dominant circumflex with robust left to left collaterals. 2. Normal left sided filling pressures PLAN: 1. Aggressive risk factor modification per most recent ACC/AHA guidelines. 2. Given long PROGRAM CHECKER length, flush occlusion with PROGRAM CHECKER cap ambiguity and patient being asymptomatic with preserved EF and robust collaterals, would treat circumflex medically. 3. Tobacco cessation.
[2021-05-28 14:11] VITALS: RESP 16
[2021-05-28 14:58] VITALS: BP 142/73; PULSE 64
== END ==
LOC: CATHCVL 09:08
PROVIDERS: ATTEND Internal Medicine
DX: R06.02 Shortness of breath (principal); I25.10 Atherosclerotic heart disease of native coronary artery without angina pectoris; I25.82 Chronic total occlusion of coronary artery; Z86.73 Personal history of transient ischemic attack (TIA), and cerebral infarction without residual deficits; Z20.822 Contact with and (suspected) exposure to COVID-19; F17.210 Nicotine dependence, cigarettes, uncomplicated; R94.39 Abnormal result of other cardiovascular function study; R93.1 Abnormal findings on diagnostic imaging of heart and coronary circulation; I71.4 Abdominal aortic aneurysm, without rupture; E78.5 Hyperlipidemia, unspecified; I10 Essential (primary) hypertension; Z82.49 Family history of ischemic heart disease and other diseases of the circulatory system; Z79.02 Long term (current) use of antithrombotics/antiplatelets; Z79.899 Other long term (current) drug therapy; Z79.82 Long term (current) use of aspirin; Z88.2 Allergy status to sulfonamides
CPT/HCPCS: 93458; 85025; 87635; C1894; J2250; J2001; J3010; J1644; Q9967

== ENCOUNTER → 2021-09-03 | Outpatient (CLI) | payer OTHER ==
[2021-09-03 14:41] LABS: African American GFR (CKD) 111.2 (60.0-200.0); Anion Gap 14.3 mmol/L (10.00-18.00); Blood Urea Nitrogen 14.4 mg/dL (9.0-27.0); Potassium 3.9 mmol/L (3.5-5.5)
[2021-09-03 15:17] LABS: INR 0.94 (0.90-1.11); Prothrombin Time 10.4 sec (9.9-11.9)
[2021-09-03 16:05] LABS: Basophils # (A) 0.05 X 10*3/uL (0.00-0.10); Basophils % (A) 0.5 %; Eosinophils # (A) 0.09 X 10*3/uL (0.04-0.35); Eosinophils % (A) 0.8 %; HCT 46.2 % (39.6-50.0); HGB 15.7 g/dL (13.0-17.0); Immature Grans, Automated 0.6 %; Lymphocytes # (A) 2.42 X 10*3/uL (0.90-5.00); Lymphocytes % (A) 22.3 %; MCH 31.5 pg (27.0-32.0); MCV 92.6 fL (80.0-97.0); Mean Platelet Volume 11.6 fL (9.5-12.2); Monocytes # (A) 0.51 X 10*3/uL (0.20-1.00); Monocytes % (A) 4.7 %; NRBC Per 100 WBC 0 /100 WBCS (0.0-0.0); Neutrophils # (A) 7.69 X 10*3/uL (1.80-7.70); Neutrophils % (A) 71.1 %; RBC 4.99 X 10*6/uL (4.40-5.60); RBC Morphology NORMAL; RDW 12.3 % (11.5-14.5); WBC 10.83 X 10*3/uL (4.50-10.00)
[2021-09-05 07:10] LABS: Anabasine Urine <2.0 ng/mL (<2.0)
== END | disposition home or self-care (01) ==
LOC: LABPAT 09:42
PROVIDERS: ATTEND Orthopaedic Surgery
DX: Z01.812 Encounter for preprocedural laboratory examination (principal); M17.12 Unilateral primary osteoarthritis, left knee; Z22.322 Carrier or suspected carrier of Methicillin resistant Staphylococcus aureus
CPT/HCPCS: 80051; 82565; 82947; 84520; 85025; 85610; 87070; G0480; 80323

== ENCOUNTER 2021-09-10 09:09 | Day surgery (SDC) | payer OTHER ==
[2021-09-05 12:36] VITALS: BMI 27.8
--- NOTE | 2021-09-09 14:02 | HP ---
HISTORY AND PHYSICAL CHIEF COMPLAINT: Left knee pain. 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 He is having a difficult time with any walking and standing. He has tried medications in addition to injections, with only partial temporary relief. PAST MEDICAL HISTORY: Significant for hypertension, peripheral vascular disease, heart disease, previous TIAs. PAST SURGICAL HISTORY: Significant for previous right knee surgery. CURRENT MEDICATIONS: Aspirin, Lipitor, Plavix, Percocet and metoprolol. ALLERGIES: SULFA. FAMILY HISTORY: Significant for diabetes. SOCIAL HISTORY: Significant for previous tobacco use in addition to occasional alcohol use. REVIEW OF SYSTEMS: Sixteen-point review of systems otherwise reviewed and is noncontributory. PHYSICAL EXAMINATION: On examination, the patient is approximately 6 feet 1 inch, 207 pounds of endomorphic habitus. HEENT exam is nonfocal. Neck is supple. He has painless passive motion of his left hip. Straight-leg raise is negative. Active motion of the left knee: Minus 10 to 120 degrees of flexion. He is tender about the medial joint line. Collaterals are stable. Dinesh is negative. Preeti's is equivocal. He has an antalgic gait pattern. His distal neurovascular exam appears intact in the left lower extremity. Previous x-rays of the left knee obtained in the office show severe medial compartment narrowing with [id number] changes and subchondral sclerosis along with spurring. IMPRESSION: 1. Left knee severe medial compartment osteoarthrosis. 2. History of heart disease, on anticoagulation. RECOMMENDATIONS: I talked to the patient at length regarding his condition along with treatment options. At this point he is quite symptomatic and limited because of pain related to his osteoarthrosis. He opts to proceed with surgery. We will plan to proceed with left total knee arthroplasty. We will reinstitute his Plavix postoperatively. Risks and benefits were discussed at length in layman's terms. MMODL / IJN: [id number] /
[~2021-09-10 09:09] MED LIST changes: +ACETAMINOPHEN TAB 500 MG TAB PO PRN; -ALPRAZolam 0.25 MG TAB PO PRN; -ALPRAZolam 0.5 MG TAB PO PRN; -ASPIRIN 325 MG TAB PO ONE; -ASPIRIN 81 MG ONE; +DEXAMETHASONE SOD PHOSPHATE 4 MG/ML 1 ML VIAL IV ONE; -HEPARIN SODIUM 1,000 UN/ML (10ML VL) IV ONE; -HEPARIN SODIUM 1,000 UN/ML (10ML VL) ONE; -HEPARIN SODIUM,PORCINE 10,000 UNIT in SODIUM CHLORIDE 0.9% 1,000 ML IRRIGATION PRN; -HEPARIN SODIUM,PORCINE 2,500 UNIT in SODIUM CHLORIDE 0.9% 250 ML IRRIGATION PRN; -IOPAMIDOL-370 125ML BTL INJ ONE; +LACTATED RINGERS 1,000 ML IV SCH; +LIDOCAINE 1% (10MG/ML) FOR IV START INTRADERMA PRN; -LIDOCAINE 1% INJ 10MG/ML (20 ML MDV) ONE; -LIDOCAINE 1% INJ 10MG/ML (20 ML MDV) SQ ONE; +MELOXICAM 7.5 MG TAB PO PRN; -MIDAZOLAM 2 MG/2 ML VIAL IV ONE; +MIDAZOLAM 2 MG/2 ML VIAL IV PRN; -NITROGLYCERIN SL TABS 0.4 MG TAB SUBLINGUAL PRN; +ONDANSETRON 4 MG/2 ML VIAL IVP ONE; +ONDANSETRON 4 MG/2 ML VIAL IVP PRN; -SODIUM CHLORIDE 0.9% 1,000 ML in EMPTY BAG 1 BAG IV SCH; +TRANEXAMIC ACID IN NACL,ISO-OS 1,000 MG in SALINE 1 100ML.BAG IVPB PRN; -VERAPAMIL 2.5 MG/ML 2 ML AMP ONE; -VERAPAMIL SYRINGE (5 MG/10 ML) INTRAARTER ONE; -fentaNYL (PF) 50 MCG/ML 2 ML AMP IV ONE; +fentaNYL (PF) 50 MCG/ML 2 ML AMP IVP PRN; -fentaNYL (PF) 50 MCG/ML 2 ML AMP ONE
[2021-09-10] MEDS ORDERED: LACTATED RINGERS 1,000 ML IV ONE ×2 (09:48→12:55)
[2021-09-10 10:20] LABS: Basophils # (A) 0.1 k/uL (0-0.2); Basophils % (A) 1 %; Eosinophils # (A) 0.2 k/uL (0-0.7); Eosinophils % (A) 2 %; HCT 44.6 % (39.0-53.0); HGB 15.4 gm/dL (13.0-17.5); Lymphocytes # (A) 2.6 k/uL (1.0-4.8); Lymphocytes % (A) 23 %; MCH 32.8 pg (25.0-35.0); MCHC 34.6 g/dL (31.0-37.0); MCV 94.7 fL (80.0-100.0); Mean Platelet Volume 8.5; Monocytes # (A) 0.5 k/uL (0-1.0); Monocytes % (A) 5 %; Neutrophils # (A) 7.5 k/uL (1.3-7.7); Neutrophils % (A) 68 %; Platelet Count 295 k/uL (150-450)
[2021-09-10 10:25] LABS: INR 0.9 (<1.2); Partial Thromboplastin Time 24.7 sec (22.0-30.0); Prothrombin Time 10.1 sec (9.0-12.0)
--- NOTE | 2021-09-10 11:07 | P.ANPRN ---
Procedure Note - Anesthesia - Nerve Block Performed Left Adductor Canal Infusion Time Out Performed: Yes Date of Procedure: 09/10/21 Procedure Start Time: 10:10 Procedure Stop Time: 10:25 Location of Patient: PreOp Indication: Acute Post-Operative Pain, Dx/Pain Location, Requested by Surgeon Specifically requested for management of pain by : Shaan Miller Sedation Type: Sedate with meaningful contact maintained Preparation: Sterile Prep, Sterile Dressing Position: Supine Catheter Depth at Skin (cm): 5 Catheter: Indwelling Needle Types: Pajunk Needle Gauge: 20 Ultrasound used to visualize needle placement: Yes Ultrasound used to observe medication spread: Yes Injectate: 0.5% Ropivacaine (see comment for volume) Blood Aspirated: No Pain Paresthesia on Injection Noted: No Resistance on Injection: Normal Image Stored and Saved: Yes Events: Uneventful and Well Tolerated (20cc 0.5% ropivacaine)
--- NOTE | 2021-09-10 11:09 | P.ANPRN ---
Procedure Note - Anesthesia - Nerve Block Performed Left iPack Single Time Out Performed: Yes Date of Procedure: 09/10/21 Procedure Start Time: : Procedure Stop Time: : Location of Patient: PreOp Indication: Acute Post-Operative Pain, Dx/Pain Location, Requested by Surgeon Specifically requested for management of pain by : Shaan Miller Sedation Type: Sedate with meaningful contact maintained Preparation: Sterile Prep Position: Supine Catheter: None Needle Types: Facet Needle Gauge: 20 Ultrasound used to visualize needle placement: Yes Ultrasound used to observe medication spread: Yes Injectate: 0.5% Ropivacaine (see comment for volume) Blood Aspirated: No Pain Paresthesia on Injection Noted: No Resistance on Injection: Normal Image Stored and Saved: Yes Events: Uneventful and Well Tolerated (20cc 0.25% ropivacaine)
[2021-09-10] MEDS ORDERED: fentaNYL (PF) 50 MCG/ML 2 ML AMP ONE (11:11)
[2021-09-10] MEDS ORDERED: TRANEXAMIC ACID IN NACL,ISO-OS 1,000 MG/100 ML BAG ONE (11:11)
[2021-09-10] MEDS ORDERED: PROPOFOL 10 MG/ML 20 ML VIAL IV ONE (11:11)
[2021-09-10] MEDS ORDERED: NEOSTIGMINE 1 MG/ML 10 ML VIAL ONE (11:11)
[2021-09-10] MEDS ORDERED: SUCCINYLCHOLINE CHLORIDE 100 MG/5 ML SYR IV ONE (11:11)
[2021-09-10] MEDS ORDERED: ROPIVACAINE 5 MG/ML 30 ML VIAL ONE (11:11)
[2021-09-10] MEDS ORDERED: GLYCOPYRROLATE 0.2 MG/ML 2 ML VIAL ONE (11:11)
[2021-09-10] MEDS ORDERED: ePHEDrine 50 MG/ML 1 ML VIAL ONE (11:11)
[2021-09-10] MEDS ORDERED: MIDAZOLAM 2 MG/2 ML VIAL ONE (11:11)
[2021-09-10] MEDS ORDERED: ROCURONIUM 10 MG/ML (5 ML VIAL) IV ONE (11:11)
[2021-09-10] MEDS ORDERED: LIDOCAINE 1% INJ 10MG/ML (20 ML MDV) ONE (11:11)
[2021-09-10] MEDS ORDERED: ceFAZolin 1,000 MG in SODIUM CHLORIDE 0.9% 1,000 ML IRRIGATION ONE (11:45)
[2021-09-10] MEDS ORDERED: HYDROmorphone 0.5 MG/0.5 ML SYRINGE IVP PRN (13:11)
[2021-09-10] MEDS ORDERED: HYDROcodone/APAP 7.5-325MG 1 EACH TAB PO PRN (13:11)
[2021-09-10] MEDS ORDERED: HYDROmorphone 1 MG/ML 1 ML SYRINGE IVP PRN (13:11)
[2021-09-10] MEDS ORDERED: NALOXONE 0.4 MG/ML 1 ML VIAL IV PRN (13:11)
--- NOTE | 2021-09-10 13:15 | P.OP ---
Date of Procedure: 09/10/21 Preoperative Diagnosis: left knee severe tricompartmental osteoarthrosis Postoperative Diagnosis: Same Procedure(s) Performed: Left total knee arthroplastycementedposterior stabilized Implants: Depuy Attune size 8 cemented femoral component, size 7 cemented tibial component, 12 mm articular surface, 38 mm cemented patellar component. This is a posterior stabilized implant. Anesthesia: [facility] Surgeon: Shaan Miller Entry Table Operator #1: Guido Khalil Assistant #2: Juancarlos Cruz Estimated Blood Loss (ml): 50 Pathology: other (Bone fragments) Condition: stable Disposition: PACU Indications for Procedure: The patient's a 61-year-old male presents with progressive left knee pain secondary to osteoporosis despite conservative measures. A discussion of the risks and benefits of operative intervention versus continued conservative measures was made with patient. He opted to proceed with surgery. Operative risks to include infection, neurovascular injury, development of blood clots, possible component loosening/failure need for subsequent procedures was discussed. Informed consent was obtained. Operative Findings: As below Description of Procedure: The patient was brought to the operating room, and after induction of spinal anesthesia the left lower extremity was prepped and draped in a normal fashion. The tourniquet was inflated to 270 mm marker. A longitudinal incision extending 3 finger breaths above the superior pole of patella extending to the medial aspect the tibial tubercle was then made. The skin and subcutaneous tissues were divided sharply. Electrocautery was used for hemostasis. A medial parapatellar arthrotomy was performed. The medial soft tissues to include the superficial and deep portions of the medial collateral ligament were elevated subperiosteally. The patella was everted. A portion of the retropatellar fat pad was excised sharply. The anterior cruciate ligament was sacrificed. Blunt retractors were placed. A starting hole was made in the distal femur 1 cm anterior to the posterior cruciate ligament origin. An intramedullary femoral guide was then inserted planning on 5 valgus distal cut with 9 mm distal resection. The cutting block was pinned in place. The distal cut was then made. The posterior referencing sizing guide was utilized. I felt size 8 was most appropriate. 3 of external rotation was built into the system and verified off the trans-epicondylar axis and the posterior condyles. The cutting block was pinned in place. The anterior, posterior, and chamfer cuts then made. Bone fragments were removed. The intercondylar guide was placed and the notch cut was made with a sagittal saw. The bone block was removed in one fragment. The trial component was then placed. There is good anterior to posterior and medial to lateral fit. The distal peg holes were drilled. The trial component was removed. Attention was then paid towards preparing the proximal femur. An extra medullary guide was utilized in line with the tibial shaft and second metatarsal distally. I planned on 2 mm resection from the medial compartment. The cutting block was pinned in place. The proximal tibial cut was then made. The bone was removed in one fragment. The remnants of the medial and lateral menisci were excised at the capsular junction with electrocautery. The tibia sized most appropriately at size 7. The trial femoral and tibial components were placed along with a 12 mm articular surface. I was able to obtain full flexion and extension with internal and external rotation. After several flexion and extension cycles, the tibial rotation was marked with electrocautery line with the medial one third of the tibial tubercle. Attention was then paid towards preparing the patella. A patella reamer was utilized taking stem to 14 mm of bone stock. A good flush cut was made. The patella sized most appropriately 38 mm. The peg holes were drilled. The trial components placed. I had good patellofemoral tracking with no hands technique. The trial components were then removed. The tibia was prepared in the appropriate rotation with appropriate drill and keel punch. The posterior osteophytes were removed with a curved osteotome. The flexion and extension gaps were checked and felt to be symmetric at 12 mm. A trial components were then removed. The bony surfaces were prepared with pulsatile lavage and dried. The tibial component was then cemented place was fully seated. Excess cement was removed. The femoral component cemented place and was fully seated. Excess cement was removed. The trial 12 mm articular surface was placed and the knee was put in full extension. The patella component was cemented place. After the cement had sufficiently hardened, the knee was again taken through a range of motion. Again I was able to obtain full flexion and extension with varus and valgus stress. The trial 12 mm articular surface was removed and the final one inserted. This was fully seated. Care was taken to avoid any soft tissue interposition. Pulsatile lavage was again utilized. The medial parapatellar arthrotomy was closed with #2 Ethibond suture. The tourniquet was deflated with approximately 60 minutes total tourniquet time. Final hemostasis was obtained with the cautery. There was minimal bleeding therefore a deep drain was not placed. The subcutaneous tissues were reapproximated with interrupted 2-0 Vicryl sutures. The skin was reapproximated with 3-0 subcuticular strata fix suture. Skin tape and adhesive was applied. A sterile dressing was applied. The patient was awoken from sedation and transferred to recovery room in good condition. Blood loss was estimated at 50 mL. No complications were incurred. Sponge and needle counts were correct at the end of the case. Everette Khalil/Juancarlos JAUREGUI assisted during the major components of this case to include exposure, bone resection, implantation, and closure.
[2021-09-10] MEDS: HYDROmorphone 0.5 MG/0.5 ML SYRINGE IVP PRN ×2 (13:20→13:53)
[2021-09-10] MEDS ORDERED: KETOROLAC 15 MG/ML 1 ML VIAL IVP ONE (13:25)
[2021-09-10] MEDS ORDERED: ROPIVACAINE 0.2%-NS ON-Q PUMP 1,090 MG, EMPTY PAIN BALL 1 EACH MISCELLANE PRN (13:36)
--- NOTE | 2021-09-10 13:42 | XR ---
EXAMINATION TYPE: XR knee limited LT DATE OF EXAM: 09/10/2021 COMPARISON: NONE TECHNIQUE: Two views submitted HISTORY: Post op FINDINGS: There is a prosthetic knee in near anatomic alignment. There is soft tissue edema and emphysema. IMPRESSION: 1. Postoperative change. Appears in near-anatomic alignment
[2021-09-10 13:44] VITALS: TEMP 97
[2021-09-10 15:50] VITALS: BP 155/79; PULSE 65; RESP 20
== END 2021-09-10 18:03 | disposition home health service (06) ==
LOC: OR 09:09
PROVIDERS: ATTEND Orthopaedic Surgery
DX: M17.12 Unilateral primary osteoarthritis, left knee (principal); I10 Essential (primary) hypertension; I73.9 Peripheral vascular disease, unspecified; M81.0 Age-related osteoporosis without current pathological fracture; Z79.82 Long term (current) use of aspirin; Z83.3 Family history of diabetes mellitus; Z86.73 Personal history of transient ischemic attack (TIA), and cerebral infarction without residual deficits; Z87.891 Personal history of nicotine dependence; Z88.2 Allergy status to sulfonamides; Z96.652 Presence of left artificial knee joint
CPT/HCPCS: 27447; 97110; 97161; 64999; 64448; 76942; 85025; 85610; 85730; 88300; 73560; C1713 ×2; C1776; J2250; J1100; J2710; J0690 ×2; J2405; J2001; J3010; J2795 ×2; J1885; J0330; J2704; J1170

== ENCOUNTER 2021-09-11 15:45 | Emergency (ER) | payer OTHER ==
[2021-09-11 15:53] VITALS: BP 141/92; PULSE 87; RESP 16; TEMP 98.4
--- NOTE | 2021-09-11 16:25 | ED ---
General Adult HPI - General Chief complaint: Urogenital Stated complaint: Urinary retention Time Seen by Provider: 09/11/21 15:59 Source: EMS Mode of arrival: EMS Limitations: no limitations - History of Present Illness Initial comments: This 61-year-old male who had a left knee replacement yesterday presents emergency Department with urinary retention. Patient states he had a straight urinary catheterization done prior to being discharged yesterday around 7 PM. patient states since then he has only been able to urinate very small amounts and states for the last 4 hours he has only been able to dribble a little bit when he tries to pee. Patient states he is having increased pressure. Patient denies ever experiencing this in his past. Patient states he is not having any trouble with his left knee replacement states he is walking around his house with a walker at home without any issues. Patient denies any abdominal pain, burning with urination, fever, chest pain, shortness of breath, nausea, vomiting, change in vision, lightheadedness, dizziness, change in appetite. - Related Data Home Medications Medication Instructions Recorded Confirmed Clopidogrel [Plavix] 75 mg PO DAILY 05/10/21 09/05/21 Metoprolol Succinate (ER) [Toprol 50 mg PO BID 05/10/21 09/05/21 Xl] [place]-3 Fatty Acids/Fish Oil [Fish 1 each PO DAILY 09/05/21 09/05/21 Oil 1,000 mg Softgel] oxyCODONE HCL/ACETAMINOPHEN 1 tab PO DIRECTED PRN 09/05/21 09/05/21 [Percocet 5-325 mg] Previous Rx's Medication Instructions Recorded Aspirin 81 mg PO DAILY #30 chewable 05/12/19 Atorvastatin [Lipitor] 40 mg PO HS #30 tab 05/12/19 Docusate [Colace] 100 mg PO DAILY #20 capsule 09/10/21 HYDROcodone/APAP 7.5-325MG [[place] 1 - 2 each PO Q6HR PRN #42 tab 09/10/21 7.5] Allergies Allergy/AdvReac Type Severity Reaction Status Date / Time Sulfa (Sulfonamide AdvReac Unknown Verified 09/05/21 12:20 Antibiotics) Childhood Review of Systems ROS Statement: Those systems with pertinent positive or pertinent negative responses have been documented in the HPI. ROS Other: All systems not noted in ROS Statement are negative. Past Medical History Past Medical History: Osteoarthritis (OA), Pneumonia Additional Past Medical History / Comment(s): Vertigo, chronic L knee pain (torn meniscus), bronchitis. History of Any Multi-Drug Resistant Organisms: None Reported Past Surgical History: Orthopedic Surgery, Tonsillectomy Additional Past Surgical History / Comment(s): right knee surgery Past Anesthesia/Blood Transfusion Reactions: No Reported Reaction Past Psychological History: No Psychological Hx Reported Smoking Status: Former smoker Past Alcohol Use History: Occasional, Rare Past Drug Use History: Marijuana - Past Family History Mother Family Medical History: Vascular Disorder General Exam Limitations: no limitations General appearance: alert, in no apparent distress Head exam: Present: atraumatic, normocephalic, normal inspection Eye exam: Present: normal appearance, PERRL, EOMI. Absent: scleral icterus, conjunctival injection, periorbital swelling Pupils: Present: normal accommodation ENT exam: Present: normal exam, mucous membranes moist Neck exam: Present: normal inspection, full ROM. Absent: tenderness, meningismus, lymphadenopathy Respiratory exam: Present: normal lung sounds bilaterally. Absent: respiratory distress, wheezes, rales, rhonchi, stridor Cardiovascular Exam: Present: regular rate, normal rhythm, normal heart sounds. Absent: systolic murmur, diastolic murmur, rubs, gallop, clicks GI/Abdominal exam: Present: soft, normal bowel sounds. Absent: distended, tenderness, guarding, rebound, rigid Extremities exam: Present: normal inspection (Patient with Issa bandage wrapped around his left thigh down to left ankle that was placed yesterday. Bandaging around left knee under Issa bandage in place ), full ROM, normal capillary refill. Absent: tenderness, pedal edema, joint swelling, calf tenderness Back exam: Present: normal inspection, full ROM. Absent: CVA tenderness (R), CVA tenderness (L), paraspinal tenderness, vertebral tenderness Neurological exam: Present: alert, oriented X3, CN II-XII intact Psychiatric exam: Present: normal affect, normal mood Skin exam: Present: warm, dry, intact, normal color. Absent: rash Course Vital Signs 09/11/21 15:49 Temperature 98.4 F Pulse Rate 87 Respiratory 16 Rate Blood Pressure 141/92 O2 Sat by Pulse 97 Oximetry Medical Decision Making - Medical Decision Making This 61-year-old male presents emergency Department with urinary retention. Patient is postop day 1 from a left total knee replacement and states he has only been able to urinate very small amounts since operation. Patient states they did perform a straight catheterization prior to discharging him last night around 7:00 PM. Blood scan showed about 600mls; indwelling urinary catheter was placed and 700mls was drained. Patient with instant relief and stated he felt much better after urine was drained. Urine with trace protein and trace ketones. Patient sent home with indwelling urinary catheter and follow-up with urology. I instructed patient to follow-up with urologist in next 1-2 days. Patient instructed to follow up with his primary care provider in next 1-2 days. Strict return precautions were discussed. Patient verbally agreed to plan. Patient sent home in stable condition. Case discussed in detail with my attending, . - Lab Data Lab Results 09/11/21 Range/Units 16:33 Urine Color Yellow Urine Appearance Clear (Clear) Urine pH 6.0 (5.0-8.0) Ur Specific [place] 1.022 (1.001-1.035) Urine Protein Trace H (Negative) Urine Glucose (UA) Negative (Negative) Urine Ketones Trace H (Negative) Urine Blood Negative (Negative) Urine Nitrite Negative (Negative) Urine Bilirubin Negative (Negative) Urine Urobilinogen <2.0 (<2.0) mg/dL Ur Leukocyte Esterase Negative (Negative) Disposition Clinical Impression: Urinary retention Disposition: HOME SELF-CARE Condition: Stable Instructions (If sedation given, give patient instructions): Urinary Retention in Men (ED) Additional Instructions: Please follow-up with urology next 1-2 days. Return to the emergency department with any new, worsening, or concerning symptoms. Follow-up with your primary care provider in the next 1-2 days. Is patient prescribed a controlled substance at d/c from ED?: No Referrals: Natasha Farfan MD [Primary Care Provider] - 1-2 days Yared Orlando MD [STAFF PHYSICIAN] - 1-2 days Time of Disposition: 16:51
[2021-09-11 16:40] LABS: Appearance,Urine Clear (Clear); Bilirubin,Urine Negative (Negative); Blood,Urine Negative (Negative); Color,Urine Yellow; Glucose,Urine (UA) Negative (Negative); Ketones,Urine Trace (Negative); Leukocyte Esterase,Urine Negative (Negative); Nitrite,Urine Negative (Negative); Protein,Urine Trace (Negative); Specific Gravity,Urine 1.022 (1.001-1.035); Urobilinogen,Urine <2.0 mg/dL (<2.0)
== END 2021-09-11 17:35 | disposition home or self-care (01) ==
LOC: EC 15:45
DX: N39.0 Urinary tract infection, site not specified (principal); Z87.891 Personal history of nicotine dependence; Z88.2 Allergy status to sulfonamides
CPT/HCPCS: 81003; 99283

== ENCOUNTER → 2021-12-13 | Outpatient (CLI) | payer OTHER ==
--- NOTE | 2021-12-13 11:21 | CT ---
EXAMINATION TYPE: CT angio abdomen pelvis CT DLP: 1017.1 mGycm, Automated exposure control for dose reduction was used. DATE OF EXAM: 12/13/2021 10:55 AM COMPARISON: MR abdomen 03/15/2019. CLINICAL INDICATION:Male, 61 years old with history of I71.4 AAA w/o rupture; Abdominal aortic aneury sm without rupture TECHNIQUE: Multiple thin slice sub-millimeter images were obtained through the abdomen, pelvis, and l ower extremities for and after administration of contrast. Patient was given Isovue 370, 100 cc intr avenously. 3-D reconstructed images and maximum intensity projection images were obtained of the abd omen, pelvis, and lower extremities. FINDINGS: CTA Abdomen and pelvis: The infrarenal abdominal aorta does demonstrate aneurysmal dilatation measuri ng 5.6 x 5.1 cm in TV in AP dimensions (series 6, image 107). This extends to the defecation. There i s significant mural thrombus identified with the opacified portion of the abdominal aorta measuring 2 .7 x 2.3 cm. Additionally there is ectasia of the infrarenal abdominal aorta superiorly measuring up to 2.8 cm. The origins of the superior mesenteric artery, renal arteries, and celiac axis are patent . Mild stenosis at the origin of the celiac axis secondary to a vascular calcification. The DAFNE is no t opacified. The iliac vessels are normal in morphology. Atherosclerotic plaquing with some mural th rombus formation is identified in the common iliac arteries. VISCERA: The liver, spleen, adrenal glands, kidneys, pancreas, and gallbladder are not optimally enha nced due the arterial phase utilized. LIVER: Unremarkable GALLBLADDER AND BILE DUCTS: Unremarkable. PANCREAS: Unremarkable. SPLEEN: Unremarkable. ADRENAL GLANDS: Bilateral adrenal gland nodules with the right measuring 3.7 x 2.9 cm with a Hounsfie ld unit of 8 and the left measuring 2.8 x 1.6 cm with a Hounsfield unit of 6 noncontrast imaging. The se are most consistent with benign lipid rich adrenal adenomas. KIDNEYS AND URETERS: No hydronephrosis. Likely bilateral vascular calcifications versus nonobstructiv e bilateral renal calculi. Bilateral renal cysts with a left upper pole cyst measuring 4.2 cm with pe ripheral punctate calcification (Bosniak 2). PELVIS BLADDER: Under distended but grossly unremarkable. REPRODUCTIVE: Prostate gland is prominent size. The seminal vesicles are symmetric. ABDOMEN & PELVIS STOMACH AND BOWEL: Stomach and duodenum are unremarkable. Colonic diverticulosis without evidence for acute diverticulitis. The appendix is within normal limits. No evidence of bowel obstruction. PERITONEUM: No evidence of pneumoperitoneum or free fluid. MUSCULOSKELETAL: No acute osseous abnormalities . Degenerative changes of the lumbar spine most prono unced at L5-S1 with disc space narrowing, and plate sclerosis, vacuum disc disease, and anterior oste ophytosis. LYMPH NODES: No gross evidence for lymphadenopathy. SOFT TISSUE/ABDOMINAL WALL: Small fat filled umbilical hernia. IMPRESSION 1. Infrarenal abdominal aortic aneurysm measuring up to 5.6 cm. Additionally there is ectasia of the infrarenal abdominal aorta superiorly. Vascular surgeon consultation is recommended. 2. Atherosclerotic disease involving abdominal aorta. 3. Bilateral adrenal nodules most consistent with benign lipid rich adrenal adenomas. 4. Colonic diverticulosis without evidence for acute diverticulitis.
== END | disposition home or self-care (01) ==
LOC: RADCTMAIN 09:31
PROVIDERS: ATTEND Surgery
DX: I71.4 Abdominal aortic aneurysm, without rupture (principal)
CPT/HCPCS: 74174; Q9967

== ENCOUNTER → 2022-01-03 | Outpatient (CLI) | payer MEDICARE, OTHER ==
[2022-01-03 18:36] LABS: African American GFR (CKD) 116.4 (60.0-200.0); Anion Gap 9.4 mmol/L (10.00-18.00); Blood Urea Nitrogen 16.7 mg/dL (9.0-27.0); Carbon Dioxide 24.6 mmol/L (20.0-27.5); Non-African American GFR(CKD) 100.4 (60.0-200.0)
[2022-01-03 19:49] LABS: Basophils # (A) 0.07 X 10*3/uL (0.00-0.10); Basophils % (A) 0.6 %; Eosinophils # (A) 0.35 X 10*3/uL (0.04-0.35); HCT 46.3 % (39.6-50.0); HGB 15.4 g/dL (13.0-17.0); Immature Grans, Automated 0.5 %; MCH 29.8 pg (27.0-32.0); MCHC 33.3 g/dL (32.0-37.0); MCV 89.6 fL (80.0-97.0); Mean Platelet Volume 9.4 fL (9.5-12.2); Monocytes # (A) 0.66 X 10*3/uL (0.20-1.00); Monocytes % (A) 5.7 %; NRBC Per 100 WBC 0 /100 WBCS (0.0-0.0); Neutrophils # (A) 6.59 X 10*3/uL (1.80-7.70); Neutrophils % (A) 57.2 %; Platelet Count 133 X 10*3/uL (140-440); RBC 5.17 X 10*6/uL (4.40-5.60); RBC Morphology NORMAL; RDW 14.9 % (11.5-14.5); WBC 11.53 X 10*3/uL (4.50-10.00)
== END | disposition home or self-care (01) ==
LOC: LABWHC1 13:38
PROVIDERS: ATTEND Surgery
DX: Z01.812 Encounter for preprocedural laboratory examination (principal); I71.4 Abdominal aortic aneurysm, without rupture
CPT/HCPCS: 36415; 80051; 82565; 84520; 85025

== ENCOUNTER 2022-01-17 06:05 | Inpatient (IN) | payer MEDICARE, OTHER ==
[2022-01-16 10:12] VITALS: BMI 26.4
[~2022-01-17 06:05] MED LIST changes: -ACETAMINOPHEN TAB 500 MG TAB PO PRN; +ALPRAZolam 0.25 MG TAB PO PRN; +ALPRAZolam 0.5 MG TAB PO PRN; -DEXAMETHASONE SOD PHOSPHATE 4 MG/ML 1 ML VIAL IV ONE; -LACTATED RINGERS 1,000 ML IV SCH; -LIDOCAINE 1% (10MG/ML) FOR IV START INTRADERMA PRN; -MELOXICAM 7.5 MG TAB PO PRN; -MIDAZOLAM 2 MG/2 ML VIAL IV PRN; -ONDANSETRON 4 MG/2 ML VIAL IVP ONE; -ONDANSETRON 4 MG/2 ML VIAL IVP PRN; +SODIUM CHLORIDE 0.9% 1,000 ML in EMPTY BAG 1 BAG IV ONE; -TRANEXAMIC ACID IN NACL,ISO-OS 1,000 MG in SALINE 1 100ML.BAG IVPB PRN; +ZOLPIDEM 5 MG TAB PO PRN; -fentaNYL (PF) 50 MCG/ML 2 ML AMP IVP PRN
[2022-01-17 06:54] LABS: Basophils # (A) 0.1 k/uL (0-0.2); Basophils % (A) 1 %; Eosinophils # (A) 0.3 k/uL (0-0.7); Eosinophils % (A) 3 %; HCT 47.8 % (39.0-53.0); HGB 15.3 gm/dL (13.0-17.5); Lymphocytes # (A) 2.4 k/uL (1.0-4.8); Lymphocytes % (A) 23 %; MCH 29.2 pg (25.0-35.0); MCHC 32.1 g/dL (31.0-37.0); Mean Platelet Volume 8.2; Monocytes # (A) 0.6 k/uL (0-1.0); Monocytes % (A) 6 %; Neutrophils # (A) 6.8 k/uL (1.3-7.7); Neutrophils % (A) 67 %; Platelet Count 302 k/uL (150-450); RBC 5.25 m/uL (4.30-5.90); WBC 10.2 k/uL (3.8-10.6)
[2022-01-17] MEDS ORDERED: fentaNYL (PF) 50 MCG/ML 2 ML AMP ONE (07:00)
[2022-01-17] MEDS ORDERED: NEOSTIGMINE 1 MG/ML 10 ML VIAL ONE (07:00)
[2022-01-17] MEDS ORDERED: ePHEDrine 50 MG/ML 1 ML VIAL ONE (07:00)
[2022-01-17] MEDS ORDERED: LIDOCAINE 2% INJ 20 MG/ML (2 ML VIAL) ONE (07:00)
[2022-01-17] MEDS ORDERED: ceFAZolin 1 GM in SODIUM CHLORIDE 0.9% 250 ML IRRIGATION PRN (07:00)
[2022-01-17] MEDS ORDERED: GLYCOPYRROLATE 0.2 MG/ML 2 ML VIAL ONE (07:00)
[2022-01-17] MEDS ORDERED: ROCURONIUM 10 MG/ML (5 ML VIAL) IV ONE (07:00)
[2022-01-17] MEDS ORDERED: HEPARIN SODIUM,PORCINE 10,000 UNIT/ML 1 ML VIAL ONE (07:00)
[2022-01-17] MEDS ORDERED: SUCCINYLCHOLINE CHLORIDE 200 MG/10 ML VIAL IV ONE (07:00)
[2022-01-17] MEDS ORDERED: MIDAZOLAM 2 MG/2 ML VIAL ONE (07:00)
[2022-01-17] MEDS ORDERED: PROPOFOL 10 MG/ML 20 ML VIAL IV ONE (07:00)
[2022-01-17] MEDS ORDERED: PROTAMINE SULFATE 10 MG/ML 5 ML VIAL IV ONE ×3 (07:00→09:38)
[2022-01-17] MEDS: LIDOCAINE 1% INJ 10MG/ML (30 ML VIAL-PF) SQ ONE ×2 (08:12→08:15)
[2022-01-17] MEDS ORDERED: LACTATED RINGERS 1,000 ML IV ONE ×2 (09:00)
[2022-01-17] MEDS ORDERED: IOPAMIDOL-250 100ML BTL INTRAARTER ONE (09:34)
--- NOTE | 2022-01-17 10:22 | P.OP ---
Date of Procedure: 01/17/22 Description of Procedure: Preoperative diagnosis: Asymptomatic Infrarenal 5.7 cm abdominal aortic aneurysm Postoperative diagnosis: Same Procedure: 1. Ultrasound-guided bilateral common femoral artery access 2. Percutaneous Endovascular aortic repair with [place] device. Surgeon: Ibrahima Radford DO Anesthesia: General Estimated blood loss: Less than 50 mL Complications: None Condition: Stable Disposition: Stable to recovery Fluoro Time: 16.9 minutes Contrast: 70cc Indications: 61-year-old male with history of infrarenal AAA measuring 5.7 cm presents to the [facility] for endovascular aortic repair. Risks and benefits of both open and endovascular repair were discussed. He chose to proceed with endovascular repair. He seemingly understands and is willing to proceed Operative narrative: After written and informed consent was obtained from the patient all risks benefits and complications were described the patient was brought to the [facility] and laid in a supine position. The area of the groins were prepped and draped in usual sterile fashion after appropriate anesthetic was performed per the anesthesiologist. A timeout was performed in normal fashion and antibiotics were administered prior to incisions. Utilizing ultrasound bilateral common femoral arteries were visualized demonstrating patency with minimal calcification. Under ultrasound guidance utilizing a multipurpose needle bilateral common femoral arteries were accessed and guidewire was placed followed by deployment of 2 Perclose closure devices for each femoral artery. There were a few misfires a left however to successful Perclose were left in place Utilizing Seldinger technique and 8-Turk[place] sheath was then placed and patient was administered heparin and followed with ACTs. 035 Glidewire was then placed up the right femoral sheath and exchanged for a Lunderquist wire through an angled glide catheter. The left femoral artery was then utilized and guidewire was placed followed by pigtail catheter and aortogram was obtained. Utilizing the Lunderquist wire a 26 mm main body device was then loaded over the guidewire after the 8-Turk[place] sheath was removed. Delivery system was then placed 1 cm proximal to the intended landing site and the aortic body was oriented for appropriate access for the contralateral limb. Delivery system was then retracted out of the sheath and the aortic body radiopaque markers were verified to be in the correct position. First segment of the graft was then deployed in normal fashion by releasing and pulling the knob in normal fashion. Balloon injection port was then inflated utilizing a 4- 1 saline contrast mixture in order to open the mid crown. Balloon was then deflated. Precise positioning was then performed with utilizing the radiopaque markers and parallax was removed in order to properly visualize the renal arteries. Pigtail catheter was then retracted away from the proximal stent and the proximal stent was released in normal fashion. Polymer was then utilized and filled through the polymer port which was visualized under fluoroscopy. The stiff Lunderquist wire was then retracted within the ipsilateral limb. Attention was then placed to accessing the contralateral limb. Utilizing the Glidewire and angled glide catheter the contralateral limb was accessed and pigtail catheter was placed. Pigtail catheter was then spun to verify intragraft cannulation. A stiff wire was then placed within the pigtail catheter and retrograde angiogram was obtained demonstrating the internal iliac artery takeoff. Measurements were obtained and a 14 x 1 40 mm Ovation limb was chosen to be deployed and deployed in normal fashion. Once completed the aortic main body was completely deployed in normal fashion. Utilizing the balloon balloon angioplasty was performed at the ring to further mold the polymer to the aortic neck. Once completed the aortic body deployment sheath was removed in normal fashion. Pigtail catheter was then placed over the Lunderquist wire and retrograde angiogram was obtained with measurements to the internal iliac artery on the ipsilateral limb. A 16 x 140mm Ovation limb was chosen and deployed in normal fashion. Once completed two 12 x 40mm balloons were placed up each iliac limb and balloon angioplasty was performed through its entirety. Once completed balloons were removed and pigtail catheter was placed above the graft and final angiogram was obtained demonstrating exclusion of the aneurysm with no evidence of endoleak's. All guidewires and catheters were then removed and the Perclose closure devices were closed in normal fashion. The areas were then cleansed and dressings were placed. The patient tolerated procedure well and had palpable DP pulses and was sent to PACU for recovery.
[2022-01-17] MEDS ORDERED: NALOXONE 0.4 MG/ML 1 ML VIAL IVP PRN (10:24)
[2022-01-17] MEDS ORDERED: HYDROcodone/APAP 5-325MG 1 EACH TAB PO PRN (10:24)
[2022-01-17] MEDS ORDERED: SODIUM CHLORIDE 0.9% 1,000 ML IV ONE (11:20)
--- NOTE | 2022-01-17 13:52 | IR ---
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 See dictated report from vascular surgery, 16.9 minutes fluoroscopy time, 260 intraoperative C-arm images document the procedure
[2022-01-17] MEDS ORDERED: ACETAMINOPHEN TAB 325 MG TAB PO PRN (14:57)
[2022-01-17] MEDS ORDERED: HYDROmorphone 0.5 MG/0.5 ML SYRINGE IVP PRN (15:38)
[2022-01-17] MEDS: LACTATED RINGERS 1,000 ML IV SCH (17:11)
[2022-01-17] MEDS ORDERED: ATORVASTATIN 40 MG TAB PO SCH (21:00)
--- NOTE | 2022-01-18 01:40 | CONS ---
CONSULTATION REASON FOR CONSULTATION: Regarding hypertension, hyperlipidemia, requested by Dr. Radford. HISTORY OF PRESENT ILLNESS: This 61-year-old gentleman with a past medical history of multiple medical problems including hypertension, hyperlipidemia, being followed by Dr. Farfan in the outpatient setting, underwent ultrasound-guided bilateral common femoral artery access and percutaneous endovascular aortic repair with ALTO device. The patient tolerated the procedure. The patient is complaining of severe pain and back pain also, which is rather chronic. There is no history of any fever, rigor, or chills. PAST MEDICAL HISTORY: Reviewed, include hypertension and hyperlipidemia. HOME MEDICATIONS: Reviewed include Toprol-XL, doses and rest of medications reviewed. ALLERGIES: Sulfa. FAMILY HISTORY: History of vascular disorder, polio. SOCIAL HISTORY: History of smoking. Occasional alcohol intake. REVIEW OF SYSTEMS: A 14-point review is negative as mentioned earlier. PHYSICAL EXAMINATION: VITAL SIGNS: Pulse is 86, blood pressure 148/53, and respirations 14. HEENT: Conjunctivae normal. NECK: No jugular venous distention. CARDIOVASCULAR: S1, S2 muffled. RESPIRATIONS: Breath sounds diminished in the bases. No rhonchi, no crackles. ABDOMEN: Soft, obese, groin status post vascular access. LEGS: No edema, no swelling. NERVOUS SYSTEM: No focal deficit. SKIN: No ulcer, rash, bleeding. JOINTS: No active deforming arthropathy. LABS: CBC within normal limits. ASSESSMENT: 1. Status post percutaneous endovascular repair of the infrarenal aortic aneurysm. 2. Hypertension. 3. Hyperlipidemia. 4. Multiple medical issues. RECOMMENDATIONS: This 61-year-old gentleman presented with multiple complex medical issues. I have recommend to continue current medications. Resume the home medications, pain management, DVT prophylaxis. Continue with antiplatelet agents if okay with vascular surgery. Otherwise, continue to monitor. Further recommendations to follow. See orders. The patient may be asked to follow with Dr. Farfan closely after discharge. MMODL / IJN: [id number] /
[2022-01-18] MEDS ORDERED: TAMSULOSIN 0.4 MG CAP.ER.24H PO SCH (08:30)
[2022-01-18] MEDS ORDERED: ASPIRIN 81 MG PO SCH (09:00)
[2022-01-18] MEDS ORDERED: METOPROLOL SUCCINATE (ER) 50 MG TAB.ER.24H PO SCH (09:00)
[2022-01-18] MEDS ORDERED: CLOPIDOGREL 75 MG TAB PO SCH (09:00)
[2022-01-18 09:04] VITALS: RESP 16; TEMP 97.9
[2022-01-18] MEDS: LACTATED RINGERS 1,000 ML IV SCH (09:25)
[2022-01-18 09:34] LABS: African American GFR (CKD) >90 (>60 ml/min/1.73 sqM); Anion Gap 13 mmol/L; Blood Urea Nitrogen 11 mg/dL (9-20); Calcium 8.9 mg/dL (8.4-10.2); Carbon Dioxide 19 mmol/L (22-30); Chloride 108 mmol/L (98-107); Glucose 142 mg/dL (74-99); Non-African American GFR(CKD) >90 (>60 ml/min/1.73 sqM); Sodium 140 mmol/L (137-145)
[2022-01-18 09:50] LABS: HCT 44.2 % (39.0-53.0); HGB 14.9 gm/dL (13.0-17.5); MCH 30.5 pg (25.0-35.0); MCHC 33.7 g/dL (31.0-37.0); MCV 90.6 fL (80.0-100.0); Mean Platelet Volume 12.2; RBC 4.87 m/uL (4.30-5.90); RDW 15.3 % (11.5-15.5)
[2022-01-18 10:15] LABS: Potassium 4.6 mmol/L (3.5-5.1)
[2022-01-18 11:07] VITALS: BP 158/91; PULSE 72
--- NOTE | 2022-01-18 11:16 | P.PN ---
Subjective Progress Note Date: 01/18/22 Principal diagnosis: Urinary retention Patient is postop day #1 status post endovascular repair of abdominal aortic aneurysm. His only issue is that of postoperative urinary retention and now has an indwelling Radford catheter. Patient relates that this happened in a similar event post op knee replacement. Objective - Vital Signs Vital signs: Vital Signs Temp 97.9 F 01/18/22 08:39 Pulse 72 01/18/22 11:06 Resp 16 01/18/22 11:06 BP 158/91 01/18/22 11:06 Pulse Ox 99 01/18/22 11:06 FiO2 Intake & Output 01/17/22 01/18/22 01/18/22 18:59 06:59 18:59 Intake Total 2290 118 Output Total 1325 1200 1200 Balance 965 -1200 -1082 Intake: IV 2050 Oral 240 118 Output: Urine 1325 1200 1200 Straight 600 Uretheral (Radford) 600 Other: Voiding Method Indwelling Catheter Urinal Indwelling Catheter - Exam Puncture wounds are clean, dry and healing normally. Dressings are removed. Small amount of ecchymosis is noted bilaterally. Abdomen is soft and benign. - Labs CBC & Chem 7: 01/18/22 07:59 01/18/22 07:59 Labs: Abnormal Lab Results - Last 24 Hours (Table) 01/18/22 01/18/22 Range/Units 07:59 07:59 WBC 14.0 H (3.8-10.6) k/uL Chloride 108 H (98-107) mmol/L Carbon Dioxide 19 L (22-30) mmol/L Creatinine 0.60 L (0.66-1.25) mg/dL Glucose 142 H (74-99) mg/dL Assessment and Plan Assessment: #1: Status post endovascular repair of abdominal aortic aneurysm. Patient is doing well in this regard. #2: Postop urinary retention. We will ask urology to evaluate. Plan: Patient is surgically stable once urology has evaluated the patient and made recommendations. Outpatient follow-up with Dr. Radford as previously scheduled
--- NOTE | 2022-01-19 03:53 | PN ---
PROGRESS NOTE SUBJECTIVE: This is a 61-year-old gentleman, who was admitted after aortic aneurysm stent grafting urinary retention. No chest pain. No palpitations. No fever. PHYSICAL EXAMINATION: VITAL SIGNS: Pulse is 72, blood pressure 158/90, respirations 16. ABDOMEN: Soft, nontender. EXTREMITIES: Legs,ntd NERVOUS SYSTEMS: No focal deficits. LABS: Reviewed. ASSESSMENT: 1. Status post percutaneous endovascular repair of infrarenal aortic aneurysm. 2. Urinary retention, possible BPH. 3. Hypertension. 4. Hyperlipidemia. 5. Multiple medical issues. RECOMMENDATIONS: I recommend to continue current medications and symptomatic treatment. Otherwise, I would recommend continue with catheter and Flomax. Urology evaluation outpatient. Further plan is to follow. resume the home medications. The rest of the recommendations per Vascular Surgery. MMODL / IJN: [id number] / MTDD
== END 2022-01-18 14:58 | disposition home or self-care (01) | DRG 269 ==
LOC: 2ORMAIN 06:05 → 3SCARD 11:19
PROVIDERS: ADMIT Surgery; ATTEND Surgery
PROC: 04V03DZ Restriction of Abdominal Aorta with Intraluminal Device, Percutaneous Approach (ICD-10-PCS; principal; 2022-01-17 07:30)
DX: I71.4 Abdominal aortic aneurysm, without rupture (principal); E78.5 Hyperlipidemia, unspecified; I10 Essential (primary) hypertension; R33.8 Other retention of urine; N40.1 Benign prostatic hyperplasia with lower urinary tract symptoms; J30.2 Other seasonal allergic rhinitis; Z87.891 Personal history of nicotine dependence; Z96.659 Presence of unspecified artificial knee joint; Z88.2 Allergy status to sulfonamides
CPT/HCPCS: 34705; 80048; 85025; 86850; 86900; 86901

== ENCOUNTER → 2022-02-14 | Outpatient (CLI) | payer MEDICARE, OTHER ==
--- NOTE | 2022-02-14 12:43 | CT ---
EXAMINATION TYPE: CT angio abdomen pelvis DATE OF EXAM: 02/14/2022 COMPARISON: 12/13/2021 HISTORY: Abdominal aortic aneurysm w/out rupture. Stent repair CT DLP: 1341.80 mGycm CONTRAST: CTA thoracic and abdominal aorta with 3-D reconstruction is performed without Oral Contrast and with IV Contrast, patient injected with 100 mL of Isovue 370. Contrast CTA of the abdominal aorta was performed from the lung bases through the base of the pelvis. 3-D reconstruction imaging obtained at a separate workstation. CONTRAST CT ABDOMEN AND PELVIS ABDOMEN AORTA: There is interval placement of aortobiiliac stent graft. There is no evidence for endo leak. [place] aneurysm is stable at 5 cm AP dimension. Visualized branch vessels appear to be patent. Symmetric enhancement of the kidneys. LIVER/GB- No significant abnormality is seen. PANCREAS- No significant abnormality is seen. SPLEEN- No significant abnormality is seen. ADRENALS-stable adrenal nodules bilaterally which may reflect adenomas. KIDNEYS/BLADDER-stable cyst upper pole left kidney measuring 4.3 cm. BOWEL- No Significant abnormality GENITAL ORGANS: No gross abnormality seen. LYMPH NODES- No greater than 1cm abdominal or pelvic lymph nodes are appreciated. OSSEOUS STRUCTURES- No significant abnormality is seen. OTHER- No significant abnormality is seen. IMPRESSION- There is interval placement of aortobiiliac stent graft. There is no evidence for endoleak. [place] a neurysm is stable.
== END | disposition home or self-care (01) ==
LOC: RADCTMAIN 10:57
PROVIDERS: ATTEND Surgery
DX: I71.4 Abdominal aortic aneurysm, without rupture (principal)
CPT/HCPCS: 74174; Q9967